=== PATIENT | male | born 1990 | race Caucasian/White ===

== ENCOUNTER 2023-06-19 11:54 | Emergency (ER) | payer OTHER, SELFPAY ==
[2023-06-19 12:47] VITALS: BP 144/98; PULSE 91; RESP 17; TEMP 36.5; O2SAT 96; BMI 40.7
--- NOTE | 2023-06-19 12:49 | ED.GENADULT ---
HPI - General Adult General Stated complaint: Sore throat Time Seen by Provider: 06/19/23 12:48 Source: patient, RN notes reviewed and old records reviewed Mode of arrival: ambulatory Limitations: no limitations History of Present Illness HPI narrative: 33-year-old male presents for evaluation of a sore throat. patient reports his symptoms started a couple of days ago. He reports that he has white spots in the back of his throat. he is able to swallow but has pain with swallowing denies any fevers, chills, cough Related Data Previous Rx's Medication Instructions Recorded amoxicillin 875 mg-potassium 1 tab PO Q12H #14 tabs 06/19/23 clavulanate 125 mg tablet Allergies Allergy/AdvReac Type Severity Reaction Status Date / Time No Known Allergies Allergy Verified 06/19/23 12:50 Review of Systems Constitutional: Constitutional: Denies chills and Denies fever(s) ENT: Reports sore throat Cardiovascular: Cardiovascular: Denies dyspnea Respiratory: Respiratory: Denies cough and Denies dyspnea Gastrointestinal: Gastrointestinal: Denies abdominal pain, Denies nausea and Denies vomiting PMFSH Social History Social History Unable to assess alcohol history related to: Unable to respond and Unknown Physical Exam ED Const General: healthy appearing, comfortable, no acute distress, alert and awake Nutritional Appearance: well nourished Orientation/consciousness: patient oriented x3 HENMT Other: erythematous oropharynx with bilateral tonsillar hypertrophy and whitish exudates left greater than right. no evidence of peritonsillar abscess Head: Yes normocephalic and Yes atraumatic Eyes Eyelids: Yes eyelids normal Conjunctivae: conjunctivae normal Sclerae: sclerae normal Corneas: corneas normal Pupils: Equal, round and reactive pupils present EOM: EOMs intact bilaterally Neck Neck: Yes full ROM Resp Effort & Inspection: normal respiratory effort, able to speak in complete sentences and not labored Skin General skin exam: elasticity normal Neuro General: patient oriented x3 Cranial nerves: Yes CN's II-XII intact bilaterally, Yes Equal, round and reactive pupils present and Yes Bilaterally intact EOM present Cognition (Neuro): normal cognition Extrem Other: Moving all extremities well without any obvious deformities Medical Decision Making Medical Decision Making MDM Narrative: 33-year-old male presents for evaluation of sore throat with exudate. Will treat clinically for strep throat. Patient was offered testing but declined Differential Diagnosis Differential Diagnoses: The differential diagnosis associated with the presentation includes pharyngitis Upper respiratory infection Strep pharyngitis Mononucleosis Viral syndrome Tests considered The following testing was considered but not selected: strep testing, mononucleosis test Discharge Plan Discharge Clinical Impression: Exudative pharyngitis Patient Disposition: Home, Self-Care Instructions: Pharyngitis (ED) Additional Instructions: take the antibiotic twice daily for 7 days drink lots of fluids use ibuprofen/Tylenol for pain you may also use salt water gargles and [id number] throat sprays follow-up with your primary doctor return for new or worsening symptoms Prescriptions: New amoxicillin-pot clavulanate 875-125 mg tablet 1 tab PO Q12H Qty: 14 0RF
== END 2023-06-19 12:57 | disposition home or self-care (01) ==
PROVIDERS: Emergency Provider Emergency Medicine; PCP Internal Medicine
DX: J02.9 Acute pharyngitis, unspecified (principal)
CPT/HCPCS: 99283